=== PATIENT | male | born 1950 | race Two or more races ===

== ENCOUNTER 2019-11-10 08:57 | Outpatient (CLI) | payer OTHER | END 2019-11-10 09:02 | disposition home or self-care (01) | LOC: SONOGRAMA 08:57 | PROVIDERS: ATTEND Internal Medicine | DX: E06.5 Other chronic thyroiditis (principal); E04.1 Nontoxic single thyroid nodule ==

== ENCOUNTER 2020-07-04 09:34 | Outpatient (CLI) | payer OTHER | END 2020-07-04 09:36 | disposition home or self-care (01) | LOC: NUCLEAR 09:34 | PROVIDERS: ATTEND Internal Medicine | DX: I82.409 Acute embolism and thrombosis of unspecified deep veins of unspecified lower extremity (principal) ==

== ENCOUNTER 2020-07-04 10:28 | Outpatient (CLI) | payer OTHER | END 2020-07-04 10:40 | disposition home or self-care (01) | LOC: RAD 10:28 | PROVIDERS: ATTEND Internal Medicine | DX: M54.2 Cervicalgia (principal) ==

== ENCOUNTER 2021-03-13 09:32 | Emergency (ER) | payer OTHER ==
[~2021-03-13] VITALS: Ht 167.6 cm; Wt 74.8 kg
[2021-03-13] MEDS ORDERED: JANUVIA100 MG PO (09:52)
[2021-03-13] MEDS ORDERED: IRBESARTAN150 MG PO (09:52)
[2021-03-13] MEDS ORDERED: GLIMEPIRIDE4 M1 PO (09:53)
[2021-03-13] MEDS ORDERED: METFORMIN HCL1000 MG (09:53)
[2021-03-13] MEDS ORDERED: CRESTOR5 MG PO (09:54)
== END 2021-03-13 14:59 | disposition home or self-care (01) ==
LOC: ER 09:32
DX: J44.9 Chronic obstructive pulmonary disease, unspecified (principal); Z20.822 Contact with and (suspected) exposure to COVID-19

== ENCOUNTER 2021-06-13 02:58 | Inpatient (IN) | payer OTHER ==
[~2021-06-13] VITALS: Ht 167.6 cm; Wt 74.8 kg
[~2021-06-13 02:58] MED LIST: CRESTOR5 MG PO; GLIMEPIRIDE4 M1 PO; IRBESARTAN150 MG PO; JANUVIA100 MG PO; METFORMIN HCL1000 MG
[2021-06-13] MEDS ORDERED: VENTOLIN HFA18 GM IH (03:12)
[2021-06-14] MEDS ORDERED: REFRESH TEARS15 ML (15:26)
[2021-06-14] MEDS ORDERED: METFORMIN HCL1000 M3 (15:26)
[2021-06-14] MEDS ORDERED: VITAMIN D3250 MCG (15:26)
== END 2021-07-01 12:30 | disposition home or self-care (01) | DRG 208 ==
LOC: ER 02:58 → SEC-K 11:39 → MEDI 14:31 → MEDJ 14:50 → ICU 06-15 02:43 → MEDI 06-22 18:28
PROVIDERS: ADMIT Internal Medicine; ATTEND Internal Medicine
PROC: 4A12X4Z Monitoring of Cardiac Electrical Activity, External Approach (ICD-10-PCS; 2021-06-13)
PROC: 5A1945Z Respiratory Ventilation, 24-96 Consecutive Hours (ICD-10-PCS; principal; 2021-06-14)
PROC: 0BH17EZ Insertion of Endotracheal Airway into Trachea, Via Natural or Artificial Opening (ICD-10-PCS; 2021-06-14)
PROC: B24BZZZ Ultrasonography of Heart with Aorta (ICD-10-PCS; 2021-06-14)
PROC: 02HV33Z Insertion of Infusion Device into Superior Vena Cava, Percutaneous Approach (ICD-10-PCS; 2021-06-15)
PROC: C23GYZZ Positron Emission Tomographic (PET) Imaging of Myocardium using Other Radionuclide (ICD-10-PCS; 2021-06-26)
DX: J18.9 Pneumonia, unspecified organism (principal); J96.01 Acute respiratory failure with hypoxia; A41.89 Other specified sepsis; I21.A1 Myocardial infarction type 2; I50.21 Acute systolic (congestive) heart failure; J44.1 Chronic obstructive pulmonary disease with (acute) exacerbation; N17.8 Other acute kidney failure; E78.49 Other hyperlipidemia; E11.9 Type 2 diabetes mellitus without complications; Z79.4 Long term (current) use of insulin; D72.828 Other elevated white blood cell count; K59.09 Other constipation; I11.0 Hypertensive heart disease with heart failure; I95.89 Other hypotension; Z20.822 Contact with and (suspected) exposure to COVID-19

== ENCOUNTER → 2021-12-06 | Outpatient (CLI) | payer OTHER ==
[~2021-12-06] MED LIST changes: +METFORMIN HCL1000 M3; +REFRESH TEARS15 ML; +VENTOLIN HFA18 GM IH; +VITAMIN D3250 MCG
== END | disposition home or self-care (01) ==
LOC: NUCLEAR 13:05
PROVIDERS: ATTEND Internal Medicine Endocrinology, Diabetes & Metabolism
DX: Z13.820 Encounter for screening for osteoporosis (principal); M85.89 Other specified disorders of bone density and structure, multiple sites

== ENCOUNTER 2022-05-11 11:32 | Outpatient (CLI) | payer OTHER | END 2022-05-11 11:36 | disposition home or self-care (01) | LOC: RAD 11:32 | DX: J44.9 Chronic obstructive pulmonary disease, unspecified (principal) ==

== ENCOUNTER 2022-06-01 13:38 | Outpatient (CLI) | payer OTHER | END 2022-06-01 13:48 | disposition home or self-care (01) | LOC: TOM 13:38 | PROVIDERS: ATTEND Internal Medicine | DX: I63.9 Cerebral infarction, unspecified (principal); G40.119 Localization-related (focal) (partial) symptomatic epilepsy and epileptic syndromes with simple partial seizures, intractable, without status epilepticus ==

== ENCOUNTER → 2022-08-31 | Outpatient (CLI) | payer OTHER | END | disposition home or self-care (01) | LOC: RAD 12:11 | DX: J90 Pleural effusion, not elsewhere classified (principal); J44.9 Chronic obstructive pulmonary disease, unspecified ==

== ENCOUNTER 2022-11-22 12:59 | Outpatient (CLI) | payer OTHER | END 2022-11-22 13:01 | disposition home or self-care (01) | LOC: RAD 12:59 | PROVIDERS: ATTEND Internal Medicine | DX: R05.8 Other specified cough (principal) ==

== ENCOUNTER 2022-12-03 08:31 | Outpatient (CLI) | payer OTHER | END 2022-12-03 08:39 | disposition home or self-care (01) | LOC: TOM 08:31 | PROVIDERS: ATTEND Internal Medicine | DX: C34.90 Malignant neoplasm of unspecified part of unspecified bronchus or lung (principal); R91.8 Other nonspecific abnormal finding of lung field ==